=== PATIENT | female | born 1930 | race Caucasian/White ===

== ENCOUNTER 2016-08-30 13:45 | Observation (INO) | payer MEDICARE ==
--- NOTE | ~2016-08-30 | EKG ---
PATIENT: DANNY QUICK UNIT #: [id number] Ventricular Rate: 67 BPM Atrial Rate: 63 BPM QRS Duration: 158 ms Q-T Interval: 466 ms QTC Calculation(Bezet): 492 ms Calculated R [place]: 142 degrees Calculated T [place]: 110 degrees Diagnosis Line: Electronic ventricular pacemaker Diagnosis Line: When compared with ECG of 30-AUG-2016 12:00, Diagnosis Line: (unconfirmed) Diagnosis Line: Previous ECG has undetermined rhythm, needs review Diagnosis Line: Confirmed by MARTHA OLEARY MD ([id number]) on Diagnosis Line: 08/31/2016 4:37:38 PM INTERPRETING MD: ANIRUDH MARLOW
--- NOTE | ~2016-08-30 | EKG ---
PATIENT: DANNY QUICK UNIT #: [id number] Ventricular Rate: 67 BPM Atrial Rate: 62 BPM QRS Duration: 106 ms Q-T Interval: 458 ms QTC Calculation(Bezet): 483 ms Calculated R [place]: 81 degrees Calculated T [place]: -87 degrees Diagnosis Line: Undetermined rhythm Junctional rhythm Diagnosis Line: Incomplete right bundle branch block Diagnosis Line: T wave abnormality, consider inferior ischemia Diagnosis Line: T wave abnormality, consider anterolateral Diagnosis Line: ischemia Diagnosis Line: Prolonged QT Diagnosis Line: Abnormal ECG Diagnosis Line: No previous ECGs available Diagnosis Line: Confirmed by MARTHA OLEARY MD ([id number]) on Diagnosis Line: 08/31/2016 4:34:13 PM INTERPRETING MD: ANIRUDH MARLOW
--- NOTE | ~2016-08-30 | HP ---
Unit #: [id number] #: [id number] Patient: DANNY QUICK V [id number] [address] [place], [place] [address] [id number] MR#: [id number] NAME: DANNY QUICK V. ROOM: 575 Age: 86 Sex: F Admission Date: 08/30/2016 : 1930 Attending Physician: Travon Bower M.D. Primary Care Physician: Rony Will M.D. HISTORY AND PHYSICAL CHIEF COMPLAINT Chest pain. HISTORY OF PRESENT ILLNESS The patient is an 86-year-old female with history of hypertension, paroxysmal atrial fibrillation, sick sinus syndrome with permanent pacemaker, RV idiopathic cardiomyopathy who follows with Dr. Gonsalez. The patient lives alone and has problems with dementia. Her daughter calls or checks in on her daily. When the daughter called the patient on Tuesday, the patient did not answer the phone. She also did not answer the door. EMS was able to get into her house and found the patient sleeping, although she had difficulty hearing. She was later brought to the emergency department for evaluation and was found to have bilateral cerumen impaction. The patient's daughter states that they walked into the emergency department from the parking lot and then when asked a difficult triage question the patient responded that yes she was having some anterior chest pain. This was a surprise to the patient's daughter. She does have dyspnea on exertion with activities such as climbing the stairs typically but she is usually able to ambulate throughout her home without any problems. The patient's daughter thinks maybe just the exertion from walking into the parking lot which was a longer distance than she typically walks may have provoked some shortness of breath and chest discomfort. The pain subsided in the emergency department. The patient does not recall any of the chest pain. She, again, has problem with memory loss and likely dementia and is a very poor historian. There were no other similar episodes. For the past cardiac testing history, the patient reportedly had a left heart catheterization with Dr. Gonsalez in the year approximately 1999. She is unaware of these results but there was no intervention done at that time. The patient was found to have bilateral cerumen impaction in the emergency department which was removed. PAST MEDICAL HISTORY Hypertension, paroxysmal atrial fibrillation, RV idiopathic cardiomyopathy, sick sinus syndrome with permanent pacemaker placed in 1995. There has been a subsequent generator replacement. PAST SURGICAL HISTORY Permanent pacemaker. SOCIAL HISTORY She has never smoked. She rarely drinks alcohol. There is no illicit drug use. She lives alone but family checks in by calling or visiting Unit #: [id number] #: [id number] Patient: DANNY QUICK V daily. FAMILY HISTORY Her mother had a CVA, later at the age of 86. ALLERGIES Codeine, neomycin, bacitracin and polymyxin B. HOME MEDICATIONS 1. Xarelto 15 mg daily. 2. Lisinopril 2.5 mg daily. 3. Spironolactone 25 mg daily. REVIEW OF SYSTEMS CONSTITUTIONAL: No recent fevers, chills or flu-like symptoms. SKIN: No recent rashes or hives. HEENT: No frequent headaches, vision loss. She does not grind her teeth and uses a bite block. There has been hearing loss which has improved since cerumen impaction was removed. NECK: No swollen glands or dysphagia. PULMONARY: She does have dyspnea on exertion with stairs but otherwise no shortness of breath, cough or wheezing. CARDIAC: Chest pain as discussed above. No palpitation, tachycardia, orthopnea or PND. GASTROINTESTINAL: No nausea, vomiting, diarrhea or melena. GENITOURINARY: No hematuria. EXTREMITIES: No swelling. SPINE: She did have some back pain with the chest pain yesterday but typically does not suffer from back discomfort. NEUROLOGIC: No recent stroke symptoms such as weakness or numbness on one side. No dizziness, syncope or recent falls. PHYSICAL EXAMINATION GENERAL APPEARANCE: The patient is a well-developed, well-nourished, thin, frail elderly female in no acute distress. She is a very poor historian. She is awake and alert but is unable to provide any history. VITAL SIGNS: Blood pressure 114/64. Heart rate 67 and regular. Respiration 17 and regular. Temperature 98. O2 sat 98%. Weight 101. SKIN: No rashes or hives. HEENT: Head is normocephalic, atraumatic. There is no xanthelasma. Oral mucosa is mildly dry but pink. NECK: No JVD or carotid bruit. SPINE: No scoliosis. CHEST: Clear to auscultation bilaterally without wheezes, rhonchi or accessory muscle use. CORONARY: Regular rate and rhythm with a 2 to 3/6 systolic murmur along the left lower sternal border. No gallop, rub or lift. ABDOMEN: Soft, nontender, nondistended. Positive bowel sounds x4. The abdominal pulsation is not enlarged. EXTREMITIES: No clubbing, cyanosis or edema. NEUROLOGIC: Awake, alert, oriented x3. DIAGNOSTIC STUDIES LABORATORY: Troponin was less than 0.03 at 8:08 this morning, less than 0.03 at 2:32 this morning and less than 0.03 at 20:30 last night. CK 32. PT 11.1, INR 1.1. Sodium 139, potassium 4.2, chloride 104, CO2 28, BUN 10, creatinine 0.5, glucose 91. WBC 5.8, hemoglobin 14.1, hematocrit 43.0, platelets 144. Unit #: [id number] #: [id number] Patient: DANNY QUICK V IMAGING: CT of the head without showed no acute findings. Chest x-ray showed marked cardiomegaly. There is no acute finding. There was a permanent pacemaker. CARDIOVASCULAR: EKG shows paced rhythm. ASSESSMENT AND PLAN 1. Chest pain. 2. Hypertension. 3. History of RV idiopathic cardiomyopathy. 4. Paroxysmal atrial fibrillation. 5. Memory loss with likely dementia. 6. Sick sinus syndrome with permanent pacemaker placement. Ms. Quick' serial troponins are negative. A 2-D echo Doppler has been obtained and this will be reviewed. There will likely be no further ischemic workup at this time. This was discussed with the patient's daughter and will be further discussed with Dr. Molina. Dictated by Lalito Junior. for Rico Molina M.D. CMG/gerson TD: 08/31/2016 10:43 JOB #: [id number] HISTORY AND PHYSICAL Page 1 of 1 X X HISTORY AND PHYSICAL
--- NOTE | ~2016-08-30 | A ---
[facility] Nutrition Therapy DATE: 08/31/16 Patient: DANNY QUICK Physician: MERVAT Address: [address] Room/Bed: [address] [place] [address], Zip: [place] [address] Admit Date: 08/30/16 Date of : [birth year] Height: 5 2 Weight: 101 46 NUTRITIONAL ASSESSMENT: REASON: Consult RE: Low weight 86 yo female admitted for chest pain PMH: HTN, Afib, RV idiopathic cardiomyopathy, sick sinus syndrome, pacemaker (1995) Anthropometrics: Ht: 5'2" Wt: 50 kg (110#) BMI: 20.1 -Per [employer], other current weight: 101#-18.5. Per daughter, current is 110#. Labs: Creat 0.5 Meds: NaCl I/O & Bowel function: --/3, last BM 08/29 Skin Integrity: Bruise (BUE), no edema noted Assessment: Chart reviewed, events noted. Pt is currently on a healthy heart diet. Pt's family was at bedside during visit. Pt's family reported no recent weight loss and pt has always been "thin". Pt's family stated pt consumed ~80% of dinner last night. Pt reported having a good appetite. Pt's family reported pt's intake at home is minimal, stating pt gets full quickly. RD technology development intern encouraged Ensures shake, pt agreed. RD technology development intern encouraged consuming supplements at home since PO intake is minimal. Pt had no diet questions at this time. See recommendations below. Dx: Inadequate oral intake RT early satiety AEB family report. Intervention: 1. Ensure TID 2. HH diet Monitoring, Evaluation and Goals: 1. PO intake; consume >75% of meals and supplements 2. Weight; prevent unintentional weight loss Recommendations: 1. Please order chocolate Ensure shakes TID w/ meals. 2. Appreciate family and staff to encourage consumption of meals and supplements. [facility] Nutrition Therapy DATE: 08/31/16 Patient: DANNY QUICK Physician: MERVAT Address: [address] Room/Bed: [address] [place] [address], Zip: [place] [address] Admit Date: 08/30/16 Date of : [birth year] Height: 5 2 Weight: 101 46 Pt is at a mild nutritional risk. RD will f/u per protocol. Respectfully, Milagro Mims, Clinical Manager Gracie Shea MS, RD, LD Food and Nutritional Services [facility] cc: client file
--- NOTE | ~2016-08-30 | CT71 ---
[facility] A [facility] RADIOLOGY TEXT RESULTS PATIENT: DANNY QUICK V LOCATION: [place] [address] : [birth year] UNIT #: [id number] AGE: [address]: MARCUS VEE MD SEX: F ORDER DR: [id number] [facility] [address] [facility]. [place], [place] [address] [id number] MR#: [id number] #: [id number] NAME: DANNY QUICK : 1930 SEX: F STUDY DATE/TIME: 08/30/2016 18:04 UNIT: Psychiatric ROOM: [facility] STUDY DESCRIPTION: CT Head Wo Contrast Attending Physician: Marcus Vee M.D. Ordering Physician: [facility] Primary Care Physician: Rony Will M.D. MEDICAL IMAGING REPORT This report is preliminary unless electronic signature is present EXAM Head CT, 08/30 HISTORY Hearing loss and confusion today. Dementia. TECHNIQUE Axial images were obtained from the base of the vertex without contrast. This CT exam was performed with one or more of the following radiation dose reduction techniques: automatic exposure control, adjustment of mA and/or kV according to patient size, and iterative reconstruction. COMPARISON STUDIES 02/04/2007. FINDINGS There are no skull fractures. There is mild acute left sphenoid sinusitis. There is mild generalized atrophy. Ventricular size and configuration are within normal limits. Chronic small vessel ischemic changes are present in the white matter. There is no acute infarct or hemorrhage. There are no masses. There is some atherosclerotic calcifications in the carotid siphons. IMPRESSION 1. No acute findings in the brain. 2. Mild acute left sphenoid sinusitis. Dictated by... Pelon Skaggs Jr., M.D. [facility] RADIOLOGY TEXT RESULTS PATIENT: DANNY QUICK V LOCATION: Psychiatric [id number] : 32 UNIT #: [id number] AGE: [address]: MARCUS VEE MD SEX: F ORDER DR: THIS IS AN ELECTRONICALLY VERIFIED REPORT Pelon Skaggs Jr., M.D. at 08/30/2016 10:27 PM JOSEFINA/lexi TD: 08/30/2016 21:14 JOB #: [id number] MEDICAL IMAGING REPORT Page 1 of 1 COPY
--- NOTE | ~2016-08-30 | DS ---
Unit #: [id number] #: [id number] Patient: DANNY QUICK V [id number] [address] [address] [id number] I MR#: [id number] NAME: DANNY QUICK V. ROOM: 575 Age: 86 Sex: F Admission Date: 08/30/2016 : 1930 Discharge Date: 08/31/2016 Attending Physician: Travon Bower M.D. Primary Care Physician: Rony Will M.D. DISCHARGE SUMMARY ADMITTING DIAGNOSES 1. Chest pain. 2. Paroxysmal atrial fibrillation. 3. Sick sinus syndrome with permanent pacemaker. 4. RV idiopathic cardiomyopathy. 5. Cerumen impaction. DISCHARGE DIAGNOSES 1. Chest pain, resolved. 2. Paroxysmal atrial fibrillation. 3. Sick sinus syndrome with permanent pacemaker. 4. Right ventricular idiopathic cardiomyopathy. 5. Cerumen impaction. HOSPITAL COURSE The patient is an 86-year-old female who was brought to the emergency department by her daughter due to difficulty hearing. She was found to have a bilateral cerumen impaction, which was removed. During triage in the ER, when asked about chest pain, the patient reported that she did have some anterior chest pain. This was a surprise to her daughter. The patient does have some dementia and problems with memory and is a very poor historian. She does not recall having a chest pain today. Serial troponins were negative. The patient had a 2D echo Doppler. Dictated report is pending. However, verbal report from Dr. Cruz is that the ejection fraction was normal. There was severe TR, RVH, and RA enlargement. At the time of discharge, the patient is without complaints. DISCHARGE MEDICATIONS 1. Xarelto 15 mg daily. 2. Zestril 2.5 mg daily. 3. Aldactone 25 mg daily. Ms. Quick will be discharged home. She will followup with Dr. Gonsalez within the next month. Dictated by... Tiffany Paul P.A.CRan for Lexie Cruz M.D. [facility] [place]/ts Unit #: [id number] #: [id number] Patient: DANNY QUICK V TD: 09/01/2016 09:05 JOB #: [id number] DISCHARGE SUMMARY Page 1 of 1 X X DISCHARGE SUMMARY
--- NOTE | ~2016-08-30 | CR72 ---
[facility] A Service of [facility] & [facility] RADIOLOGY TEXT RESULTS PATIENT: DANNY QUICK V LOCATION: [place] [address] : [birth year] UNIT #: [id number] AGE: [address]: MARCUS VEE MD SEX: F ORDER DR: [id number] [facility] [address] [place], [place] [address] [id number] MR#: [id number] Acc #: [id number] NAME: DANNY QUICK : 1930 SEX: F STUDY DATE/TIME: 08/30/2016 14:37 UNIT: GIRISH ROOM: STUDY DESCRIPTION: CR Chest Single View Portable Attending Physician: Joey Bean M.D. Ordering Physician: [facility] Primary Care Physician: Rony Will M.D. MEDICAL IMAGING REPORT This report is preliminary unless electronic signature is present EXAM Portable chest 08/30/2016 HISTORY 86-year-old female with chest pain beginning today. COMPARISON STUDIES None FINDINGS Frontal chest demonstrates marked cardiomegaly. Left-sided pacing complex. Mediastinum and pulmonary vasculature unremarkable. Lungs clear. No pneumothorax. IMPRESSION 1. Marked cardiomegaly. Left-sided pacing complex. 2. No other acute chest findings. Dictated by... Danyel Chavarria M.D. THIS IS AN ELECTRONICALLY VERIFIED REPORT Danyel Chavarria M.D. at 08/31/2016 6:39 PM Holli TD: 08/30/2016 16:29 JOB #: [id number] MEDICAL IMAGING REPORT Page 1 of 1 COPY
[2016-08-30 13:29] LABS: POC - CKMB 2.2 ng/mL (0.0-7.9); POC - TROPONIN <0.05 ng/mL (<=0.05)
[~2016-08-30 13:45] MED LIST: ALTACE PO; AMIODARONE PO; AMITRYPTYLINE PO; ASPIRIN PO; ATARAX PO; COUMADIN PO; IBUPROFEN PO; KEFLEX500 MG PO; PREDNISONE5 M1 PO
[2016-08-30 14:02] LABS: BASOPHIL% 0.6 % (0-2.5); EOSINOPHIL# 0.1 X10e3 (0-0.7); EOSINOPHIL% 2.1 % (0.0-7.0); HEMOGLOBIN 14.1 gm/dL (12.0-16.0); LYMPHOCYTE# 1.3 X10e3 (1.0-3.5); LYMPHOCYTE% 22.9 % (17.0-45.0); MEAN CELL VOLUME 91.7 FL (83-96); MEAN CORPUSCULAR HGB CONC 32.7 g/dL (30-36); MEAN PLATELET VOLUME 7.6 FL (6.5-11.5); MONOCYTE# 0.4 X10e3 (0-1.0); MONOCYTE% 6.3 % (3.0-12.0); NEUTROPHIL% 68.1 % (40-75); PLATELET COUNT 144 X10e3 (140-420); RED BLOOD COUNT 4.68 X10e (3.90-5.30); RED CELL DISTRIBUTION WIDTH 13.4 % (11.0-15.5); WHITE BLOOD COUNT 5.8 X10e3 (4.0-10.5)
[2016-08-30 14:06] LABS: DIFF IND NO
[2016-08-30 14:19] LABS: ALBUMIN SERUM 4.6 g/dL (3.5-5.0); BILIRUBIN, DIRECT 0.3 mg/dL (0.0-0.2); BILIRUBIN,TOTAL 1.3 mg/dL (0.2-2.0); CALCIUM SERUM 9.4 mg/dL (8.4-10.2); CREATININE SERUM 0.5 mg/dL (0.6-1.4); GLOM FILT RATE Estimated 88.9 mL/min (>60); POTASSIUM 4.2 mmol/L (3.5-5.1); PROTEIN TOTAL SERUM 7.9 g/dL (6.0-8.3)
[2016-08-30 14:41] LABS: INR 1.1; PARTIAL THROMBOPLASTIN TIME 27.7 SECONDS (23.5-31.3); PROTHROMBIN TIME (PATIENT) 11.1 SECONDS (9.6-11.5)
[2016-08-30 14:51] LABS: POC - CKMB 1.8 ng/mL (0.0-7.9); POC - TROPONIN <0.05 ng/mL (<=0.05)
[2016-08-30] MEDS ORDERED: XARELTO15 MG PO (16:47)
[2016-08-30] MEDS ORDERED: ZESTRIL2.5 M1 PO (16:47)
[2016-08-30] MEDS ORDERED: ALDACTONE25 MG PO (16:47)
[2016-08-30 16:54] LABS: URINE SOURCE CLEAN CATCH
[2016-08-30 17:02] LABS: URINE APPEARANCE CLEAR; URINE BILIRUBIN NEG (NEG); URINE BLOOD NEG (NEG); URINE COLOR YELLOW; URINE GLUCOSE NEG (NEG); URINE KETONE NEG (NEG); URINE LEUKOCYTE ESTERASE NEG (NEG); URINE NITRATE NEG (NEG); URINE PH 7.5 (5-8); URINE PROTEIN NEG (NEG); URINE SPECIFIC GRAVITY 1.006 (1.003-1.035)
[2016-08-30 17:15] LABS: CULTURE INDICATED? NO
[2016-08-30 21:01] LABS: CK TOTAL 46 IU/L (26-140)
[2016-08-31 03:14] LABS: CK TOTAL 41 IU/L (26-140)
[2016-08-31 08:43] LABS: CK TOTAL 32 IU/L (26-140)
== END 2016-08-31 18:03 | disposition home or self-care (01) ==
LOC: CED 13:45 → CEDOF 16:30 → C5C 18:17
PROVIDERS: Emergency Medicine; Internal Medicine Interventional Cardiology
DX: R07.89 Other chest pain (principal); I48.0 Paroxysmal atrial fibrillation; Z95.0 Presence of cardiac pacemaker; R41.3 Other amnesia; I42.8 Other cardiomyopathies; J01.30 Acute sphenoidal sinusitis, unspecified; I51.7 Cardiomegaly; Z79.01 Long term (current) use of anticoagulants; H61.23 Impacted cerumen, bilateral; Z82.3 Family history of stroke; Z88.1 Allergy status to other antibiotic agents; Z88.5 Allergy status to narcotic agent
CPT/HCPCS: 36415; 70450; 71010; 80048; 80076; 81003; 82550; 82553; 84484; 85025; 85610; 85730; 93005; 93306; 99285; G0378